=== PATIENT | male | born 1960 | race Caucasian/White ===

== ENCOUNTER → 2017-02-22 | Outpatient (CLI) | payer BC ==
[~2017-02-22] MED LIST: ABAT125S SC; CERT400S SQ; CLON0.5T20 PO; DESM10SP2 PO; DICL50TA2 PO; ESOM20CA PO
== END | disposition home or self-care (01) ==
LOC: CVU 13:34
PROVIDERS: ATTEND Internal Medicine Cardiovascular Disease
DX: R01.1 Cardiac murmur, unspecified (principal); M06.9 Rheumatoid arthritis, unspecified
CPT/HCPCS: 93306